=== PATIENT | male | born 1965 | race Caucasian/White ===

== ENCOUNTER 2017-08-24 09:04 | Day surgery (SDC) | payer OTHER ==
[2017-08-24] MEDS ORDERED: CEFAZOLIN 2 GM/50 ML (PMX) 50 ML IVPB (10:00)
[2017-08-24 10:06] LABS: ADD MAN DIFF? NO
[2017-08-24 10:16] LABS: WHITE BLOOD COUNT 7.2 10^3/ul (4.8-10.8)
[2017-08-24 10:16] LABS: BASOPHIL # 0.1 10^3/ul (0.0-0.1); BASOPHILS % 0.8 % (0.0-2.0); EOSINOPHILS # 0.2 10^3/ul (0.0-0.5); EOSINOPHILS % 2.6 % (0.0-7.0); HEMATOCRIT 41.2 % (42.0-52.0); HEMOGLOBIN 14.5 g/dl (14.0-18.0); LYMPHOCYTES # 2.2 10^3/ul (0.8-2.9); LYMPHOCYTES % 29.8 % (15.0-51.0); MEAN CORPUSCULAR HEMOGLOBIN 31.5 pg (29.0-33.0); MEAN CORPUSCULAR HGB CONC 35.2 g/dl (32.0-37.0); MEAN CORPUSCULAR VOLUME 89.6 fl (82.0-101.0); MEAN PLATELET VOLUME 9.3 fl (7.4-10.4); MONOCYTE # 0.6 10^3/ul (0.3-0.9); MONOCYTES % 8.3 % (0.0-11.0); NEUTROPHIL # 4.2 10^3/ul (1.6-7.5); NEUTROPHILS % 58.2 % (39.0-77.0); PLATELET COUNT 252 10^3/UL (140-415); RED CELL DISTRIBUTION WIDTH 11.9 % (11.5-14.5)
[2017-08-24 10:31] LABS: INR 0.99; PARTIAL THROMBOPLASTIN TIME 31.8 Sec (25.0-35.0); PROTIME 13.2 Sec (11.9-14.9)
[2017-08-24 10:47] LABS: ANION GAP 15 (8-16); CARBON DIOXIDE 24 mmol/L (21-31); CHLORIDE 108 mmol/L (97-110); GLUCOSE 93 mg/dl (70-220)
[2017-08-24 10:56] LABS: BLOOD UREA NITROGEN 13 mg/dl (7-20); CALCIUM 9.3 mg/dl (8.4-10.2); CREATININE 0.75 mg/dl (0.61-1.24); POTASSIUM 4.2 mmol/L (3.5-5.1); SODIUM 143 mmol/L (135-144)
[2017-08-24] MEDS ORDERED: PROPOFOL 20 ML (12:01)
[2017-08-24] MEDS ORDERED: FENTAnyl 50 MCG/ML VIAL ×2 (12:02→12:39)
[2017-08-24] MEDS ORDERED: MIDAZOLAM 1 MG/ML 2 ML INJ (12:02)
[2017-08-24] MEDS ORDERED: METOCLOPRAMIDE 10 MG INJ (12:02)
[2017-08-24] MEDS ORDERED: ROPIVACAINE 0.5 % 30 ML VIAL (12:02)
[2017-08-24] MEDS ORDERED: KETOROLAC 30 MG INJ (12:39)
[2017-08-24] MEDS ORDERED: ONDANSETRON 4 MG INJ (12:39)
[2017-08-24] MEDS ORDERED: DIPHENHYDRAMINE 50 MG INJ IV (13:00)
[2017-08-24] MEDS ORDERED: OXYCODONE/ACETAMINOPHEN (5/325) TAB PO ×2 (13:00)
[2017-08-24] MEDS ORDERED: HYDROmorphONE (0.2 MG/ML) 10ML SYG IV ×3 (13:00)
[2017-08-24] MEDS ORDERED: KETOROLAC 30 MG INJ IV (13:00)
[2017-08-24] MEDS ORDERED: MEPERIDINE 25 MG INJ IV (13:00)
[2017-08-24] MEDS: POLYMYXIN/BACITRACIN 1L IRRIG IRR (13:03)
[2017-08-24] MEDS ORDERED: ACETAMINOPHEN 1000MG/100ML IV 100 ML (13:40)
[2017-08-24] MEDS ORDERED: HYDROmorphONE 2 MG/ML SYG (14:00)
[2017-08-24] MEDS: ONDANSETRON 4 MG INJ IV (17:49)
== END 2017-08-24 18:00 | disposition home or self-care (01) ==
LOC: SDS 09:04
DX: S82.851A Displaced trimalleolar fracture of right lower leg, initial encounter for closed fracture (principal); W11.XXXA Fall on and from ladder, initial encounter; E66.9 Obesity, unspecified; Z68.37 Body mass index [BMI] 37.0-37.9, adult
CPT/HCPCS: 27822; 73610-RT; 80048; 85025; 85610; 85730